=== PATIENT | female | born 1965 ===

== ENCOUNTER 2023-04-15 04:06 | Day surgery (SDC) | payer OTHER ==
[2023-04-13 10:43] VITALS: BMI 23.3
[2023-04-15] MEDS ORDERED: LIDOCAINE HCL 1%, 10 MG/ML (20ML VIAL) ONE (12:09)
[2023-04-15] MEDS ORDERED: METHYLENE BLUE 50 MG/10 ML AMPUL ONE (12:09)
[2023-04-15] MEDS: LIDOCAINE HCL 1%, 10 MG/ML (20ML VIAL) INF ONE (12:31)
[2023-04-15] MEDS ORDERED: MIDAZOLAM HCL 2 MG/2 ML SINGLE DOSE VIAL ONE (13:09)
[2023-04-15] MEDS ORDERED: PROPOFOL 20 ML ONE (13:09)
[2023-04-15] MEDS ORDERED: LIDOCAINE HCL/PF 2% SDV 5ML VIAL ONE (13:09)
[2023-04-15] MEDS ORDERED: DEXAMETHASONE SOD PHOSPHATE 4 MG/1 ML VIAL ONE (13:26)
[2023-04-15] MEDS ORDERED: ceFAZolin SODIUM 1 GM VIAL ONE (13:26)
[2023-04-15] MEDS: ceFAZolin SODIUM 1 GM VIAL IVPB ONE (13:30)
[2023-04-15] MEDS ORDERED: SEVOFLURANE 250 ML BTL ONE (13:36)
[2023-04-15] MEDS ORDERED: ONDANSETRON 4 MG/2 ML VIAL ONE (13:48)
[2023-04-15] MEDS ORDERED: TRANEXAMIC ACID 1000 MG/10 ML VIAL ONE (14:51)
[2023-04-15] MEDS ORDERED: oxyCODONE HCL 5 MG TABLET PO PRN ×2 (15:13)
[2023-04-15] MEDS ORDERED: PROMETHAZINE HCL 25 MG/1 ML VIAL IVPB PRN (15:13)
[2023-04-15] MEDS ORDERED: ACETAMINOPHEN 1000 MG/100 ML BAG IVPB ONE (15:13)
[2023-04-15] MEDS ORDERED: ONDANSETRON 4 MG/2 ML VIAL IVPUSH PRN (15:13)
[2023-04-15] MEDS: LACTATED RINGERS SOLUTION 1,000 ML IV SCH (15:15)
[2023-04-15] MEDS: ACETAMINOPHEN 1000 MG/100 ML BAG IVPB ONE (15:18)
[2023-04-15] MEDS ORDERED: HYDROmorphone HCl 2 MG/ML VIAL ONE (16:04)
[2023-04-15] MEDS: HYDROmorphone HCl 2 MG/ML VIAL IVPUSH ONE (16:05)
[2023-04-15 17:57] VITALS: RESP 16
[2023-04-15 19:12] VITALS: BP 150/79; PULSE 101; TEMP 98
== END 2023-04-15 19:35 | disposition home or self-care (01) ==
LOC: JASU-SURG 04:06
PROVIDERS: ATTEND Surgery
PROC: 0HBT0ZZ Excision of Right Breast, Open Approach (ICD-10-PCS; principal; 2023-04-15 12:00)
DX: C50.811 Malignant neoplasm of overlapping sites of right female breast (principal)
CPT/HCPCS: 19281; 19282; 76098-TC-FY; 78195-TC; 82962; 88307-TC; 88342-TC; 94760; A4648; A9541; J0131; Q9968